=== PATIENT | female | born 1955 | race Caucasian/White ===

== ENCOUNTER 2016-07-04 07:57 | Emergency (ER) | payer OTHER ==
[2016-07-04 08:34] VITALS: BP 149/85
--- NOTE | 2016-07-04 08:45 | UC ---
Lower Extremity/Ankle HPI - HPI Summary HPI Summary: SLIPPED AND FELL YESTEDAY. LEFT FOOT CAUGHT UP UNDERNEATH HER. HAS BRUISING AND SWELLING. ABLE TO WALK BUT WITH PAIN. - History of Current Complaint Chief Complaint: UCLowerExtremity Stated Complaint: FOOT INJURY Time Seen by Provider: 07/04/16 08:35 Hx Obtained From: Patient Onset/Duration: Sudden Onset Severity Initially: Moderate Severity Currently: Moderate Pain Intensity: 4 Pain Scale Used: 0-10 Numeric Aggravating Factor(s): Standing, Ambulation Alleviating Factor(s): Rest Able to Bear Weight: Yes - Allergies/Home Medications Allergies/Adverse Reactions: Allergies Allergy/AdvReac Type Severity Reaction Status Date / Time Codeine Allergy Vomiting Verified 07/04/16 08:28 Home Medications: Home Medications Ibuprofen TAB* [Motrin TAB* 600 MG] 600 mg PO Q6H PRN 07/04/16 [History Confirmed 07/04/16] PMH/Surg Hx/FS Hx/Imm Hx Respiratory History Of: Reports: Asthma - Surgical History Surgical History: Yes Surgery Procedure, Year, and Place: appendectomy - Family History Known Family History: Negative: Hypertension - Social History Alcohol Use: Daily Alcohol Amount: Glass of wine w/ supper Substance Use Type: None Smoking Status (MU): Current Every Day Smoker Type: Cigarettes Amount Used/How Often: 5 cigs/day - Immunization History Most Recent Influenza Vaccination: None Most Recent Tetanus Shot: UNK Most Recent Pneumonia Vaccination: None Review of Systems Constitutional: Negative Skin: Bruising Respiratory: Negative Cardiovascular: Negative Gastrointestinal: Negative Musculoskeletal: Arthralgia, Decreased ROM, Edema All Other Systems Reviewed And Are Negative: Yes Physical Exam Triage Information Reviewed: Yes Appearance: Well-Appearing, No Pain Distress, Well-Nourished Vital Signs: Initial Vital Signs Temp 98.4 F 07/04/16 08:29 Pulse 85 07/04/16 08:29 Resp 18 07/04/16 08:29 BP 149/85 07/04/16 08:29 Pulse Ox 100 07/04/16 08:29 Vital Signs Reviewed: Yes Eyes: Positive: Conjunctiva Clear ENT: Positive: Hearing grossly normal Neck: Positive: Supple Respiratory: Positive: No respiratory distress, No accessory muscle use Cardiovascular: Positive: Pulses Normal Abdomen Description: Positive: Soft Musculoskeletal: Positive: ROM Limited @ - LEFT FOOT AND ANKLE, Edema @ - LEF FOOT GREAT TOE AND BRIDGE OF FOOT., Other: - TENDER OVER METATARSALS Neurological: Positive: Alert Psychological: Positive: Age Appropriate Behavior Skin: Positive: Other - BRUISING OVER LEFT MID FOOT AND GREAT TOE. Negative: rashes Diagnostics - Radiology LEFT FOOT XRAY Xray Interpretation: Positive (See Comments) - SOFT TISSUE SWELLING. NO FRACTURE Radiology Interpretation Completed By: Radiologist Lower Extremity Course/Dx - Differential Dx/Diagnosis Provider Diagnoses: LEFT FOOT CONTUSION Discharge - Discharge Plan Condition: Stable Disposition: HOME Patient Education Materials: Foot Contusion (ED) Forms: *Work Release Referrals: Lexa Howard MD [Primary Care Provider] - If Needed Additional Instructions: XRAY TODAY NEGATIVE FOR FRACTURE. REST, ICE, COMPRESS, ELEVATE. YOU SHOULD NOTICE IMPROVEMENT OVER THE NEXT SEVERAL DAYS. SEEK FOLLOW-UP IF NOT IMPROVING EXPECTED.
--- NOTE | 2016-07-04 09:31 | RAD ---
INDICATION: Left foot injury COMPARISON: None TECHNIQUE: AP, lateral, and oblique views were obtained. FINDINGS: There is no acute fracture. There is soft tissue swelling over the dorsum of the mid and forefoot. There are heel spurs. No additional significant findings. IMPRESSION: SOFT TISSUE SWELLING. NO ACUTE BONY CHANGE.
== END 2016-07-04 09:50 | disposition home or self-care (01) ==
LOC: UCEAST 07:57
DX: S90.32XA Contusion of left foot, initial encounter (principal); F17.210 Nicotine dependence, cigarettes, uncomplicated; W01.0XXA Fall on same level from slipping, tripping and stumbling without subsequent striking against object, initial encounter; Y92.9 Unspecified place or not applicable; J45.909 Unspecified asthma, uncomplicated
CPT/HCPCS: 99212; G0463